=== PATIENT | male | born 1970 | race Caucasian/White ===

== ENCOUNTER 2025-03-16 20:46 | Inpatient (IN) ==
[2025-03-16 21:44] LABS: Hematocrit (blood only) 39.3 % (42.0-52.0); Hemoglobin 13.1 g/dl (14.0-18.0); Immature Granulocytes # (auto) 0.01 K/uL (0.01-0.20); Immature Granulocytes % (auto) 0.2 %; Mean Corpuscular Hemoglobin 30.3 pg (25.0-34.0); Mean Corpuscular Volume 91.0 fL (80.0-100.0); Platelet Count 203 K/uL (130-400); RDW Standard Deviation 46.8 fL (36.4-46.3); Red Blood Count 4.32 M/uL (4.70-6.10); White Blood Count 5.59 K/ul (4.8-10.8)
[2025-03-16 21:45] LABS: Alanine Aminotransferase 25.0 U/L (7-52); Albumin Globulin Ratio 1.2 (0.9-2); Albumin Level 4.0 gm/dl (3.4-5.0); Alkaline Phosphatase 33.0 U/L (34-104); Anion Gap 8.0 (3-11); Bilirubin,Total 0.4 mg/dl (0.2-1.0); Blood Urea Nitrogen 33.0 mg/dl (6-23); Calcium 9.3 mg/dl (8.6-10.3); Carbon Dioxide 26.0 mmol/L (21-32); Chloride 104.0 mmol/L (98-107); Creatine Kinase 123.0 U/L (30-223); Creatinine Clr Calc Pharmacy 53.5 ml/min; Globulin 3.3 gm/dl (2.5-4.0); Glucose 124.0 mg/dl (70-99(Fasting)); Lipase 25.0 U/L (11-82); Magnesium 1.9 mg/dl (1.7-2.4); Potassium 4.2 mmol/L (3.5-5.1); Sodium 138.0 mmol/L (136-145); Total Protein 7.3 gm/dl (6.0-8.3)
[2025-03-16] MEDS: ACETAMINOPHEN 1,000 MG/100 ML VIAL IV STA (21:50)
--- NOTE | 2025-03-16 21:52 | XRay Report ---
Exam(s): XR CXR 1 VIEW EXAM: XR Chest, 1 View CLINICAL HISTORY: Reason for exam: syncope. TECHNIQUE: Frontal view of the chest. COMPARISON: No relevant prior studies available. FINDINGS: Lungs: No consolidation. Pleural space: No significant pleural effusion. No pneumothorax. Heart: No cardiomegaly or pulmonary vascular congestion. Bones/joints: No acute fracture. No dislocation. IMPRESSION: No evidence of acute cardiopulmonary disease. Electronically signed by: Kristi Adams M.D. 03/16/25 21:52 PM
[2025-03-16 21:58] LABS: INR 1.1 (0.9-1.1); Prothrombin Time 11.4 Seconds (9.0-12.0)
[2025-03-16 22:00] LABS: Thyroid Stimulating Hormone 0.359 uIu/ml (0.300-4.500)
[2025-03-16] MEDS: SODIUM CHLORIDE 0.9% 1,000 ML IV ONE (22:27)
--- NOTE | 2025-03-16 23:27 | Emergency Department Note ---
Impression & Plan Syncope and collapse, Fever, Influenza A, Acute hypotension, Elevated serum creatinine ED Provider Note HISTORY OF PRESENT ILLNESS: Patient is a 54-year-old male presenting after syncopal episode. Patient reports he has been having a cough and congestion for the last 48 hours. He reports he is coughing so hard but unable to bring anything up when he coughs. He states he has had subjective fevers and chills at home. Denies any recent sick contact exposures, but does report he was recently traveling to [place]. He denies any DVT or PE history. He is not on any anticoagulation or antiplatelet therapies. He reports that he had a coughing fit and was coughing so hard that he ended up resting against his sink in his kitchen. He reports that he got lightheaded after coughing so hard in the next thing he remembers was laying on the ground and he had passed out. He denies any chest pain prior to the fall. He denies any numbness or tingling or weakness in his extremities. He denies any dysuria or hematuria. ROS: as above PHYSICAL EXAM: Constitutional: Patient appears in no acute distress. HENT: Head: Normocephalic and atraumatic. Eyes: EOMI, PERRL Mouth/Throat: Mucous membranes moist. Neck: Trachea midline. Neck supple. Cardiovascular: RRR, No murmurs, rubs or gallops. Intact distal pulses. Pulmonary/Chest: No respiratory distress. Breath sounds clear and equal bilaterally. No wheezes or rales. Abdominal: Abdomen soft, no tenderness, rebound or guarding. Musculoskeletal: No edema, tenderness or deformity noted. Skin: Warm and dry. No rash, erythema, pallor or cyanosis Psychiatric: Appropriate mood and affect for situation. Neurological: Alert and keenly responsive. CN II-XII grossly intact, moving all extremities equally and fully. MDM: - Vitals signs showed fever and tachycardia - History obtained via patient. History as above. - Chronic conditions affecting care: None - Differential diagnoses include, but are not limited to: Viral syndrome; ACS; electrolyte abnormality; orthostatic hypotension; dehydration; dysrhythmia; pneumonia; PE - Order placed for continuous cardiac monitoring. At this time, monitor showed rate of 75 bpm with normal sinus rhythm, per my interpretation. - External medical records reviewed. - EKG image interpreted by myself showed sinus rhythm. Rate 83 bpm. QT 344. No acute ischemic changes. - Laboratory workup interpreted by myself showed normal WBC; normal PT/INR; stable electrolytes; elevated creatinine (Cr 2.06); normal CK; normal troponin; normal TSH; normal AST/ALT; normal lipase - CXR image reviewed interpreted by myself today for pneumonia, per my interpretation. - Viral respiratory panel positive for influenza A. - Patient given 1g IV tylenol with improvement in his temperature. He was given a total of 2 L normal saline in the emergency department, but did remain persistently hypotensive. Orthostatic vital signs were obtained and the patient remained persistently hypotensive with a blood pressure of 90s over 50s. Hypotension is likely just secondary to dehydration from his acute viral illness. However, will admit to hospital service for further evaluation. - Discussion was had with spring encaser about patient's case and need for admission - Hospitalist, Dr. Bassett, consulted for admission at 01:25 am. - Patient admitted to [facility] service for further evaluation and management. ASSESSMENT AND PLAN: Diagnosis: syncope and collapse; fever; influenza A; acute hypotension; elevated serum creatinine Plan: admit Past Med/Surg History Problem List (Updated 03/17/25 @ 01:26 by Ximena Montoya MD) Elevated serum creatinine (Acute) Acute hypotension (Acute) Influenza A (Acute) Fever (Acute) Syncope and collapse (Acute) Social History (System 10/05/18 @ 14:24 by Sarita Riddle) Smoking Status: Never smoker Tobacco Type: Smokeless Tobacco (Dip or Chew) Preferred Language: Romanian Feels Safe at Home: Yes Results & Data (ED) Vital Signs Vital Signs - 24 hr 03/16/25 21:16 03/16/25 21:16 03/16/25 21:31 Temperature 38.2 C H Temperature Source Oral Pulse Rate - Lying Pulse Rate - Sitting Pulse Rate - Standing Pulse Rate 100 H Pulse Rate [Finger] Pulse Rhythm Regular Pulse Rhythm [Finger] Pulse Strength Normal Pulse Strength [Finger] Respiratory Rate 17 Respiratory Effort / Characteristics Non-Labored Respiratory Depth Normal Respiratory Pattern Regular Blood Pressure - Lying Blood Pressure - Sitting Blood Pressure- Standing Blood Pressure 109/66 Blood Pressure [Right Arm] Blood Pressure Mean 80 Blood Pressure Mean [Right Arm] Blood Pressure Position Sitting Blood Pressure Position [Right Arm] Pulse Oximetry 92 92 92 Oxygen Delivery Method Room Air Room Air Room Air Sepsis Recent Fever Within 48 Hours Yes Sepsis New/Unexplained Change in Mental Status No Sepsis Action Taken by Nursing No Action Required 03/16/25 22:05 03/16/25 23:00 03/16/25 23:46 Temperature 37.4 C Temperature Source Oral Pulse Rate - Lying Pulse Rate - Sitting Pulse Rate - Standing Pulse Rate 84 Pulse Rate [Finger] 75 Pulse Rhythm Pulse Rhythm [Finger] Regular Pulse Strength Pulse Strength [Finger] Normal Respiratory Rate 20 Respiratory Effort / Characteristics Non-Labored Spontaneous Respiratory Depth Normal Respiratory Pattern Regular Blood Pressure - Lying Blood Pressure - Sitting Blood Pressure- Standing Blood Pressure Blood Pressure [Right Arm] 97/59 L Blood Pressure Mean Blood Pressure Mean [Right Arm] 71 Blood Pressure Position Blood Pressure Position [Right Arm] Lying Pulse Oximetry 98 Oxygen Delivery Method Room Air Sepsis Recent Fever Within 48 Hours Sepsis New/Unexplained Change in Mental Status Sepsis Action Taken by Nursing 03/17/25 00:00 Temperature Temperature Source Pulse Rate - Lying 74 Pulse Rate - Sitting 77 Pulse Rate - Standing 86 Pulse Rate Pulse Rate [Finger] Pulse Rhythm Pulse Rhythm [Finger] Pulse Strength Pulse Strength [Finger] Respiratory Rate Respiratory Effort / Characteristics Respiratory Depth Respiratory Pattern Blood Pressure - Lying 97/58 L Blood Pressure - Sitting 99/61 L Blood Pressure- Standing 90/55 L Blood Pressure Blood Pressure [Right Arm] Blood Pressure Mean Blood Pressure Mean [Right Arm] Blood Pressure Position Blood Pressure Position [Right Arm] Pulse Oximetry Oxygen Delivery Method Sepsis Recent Fever Within 48 Hours Sepsis New/Unexplained Change in Mental Status Sepsis Action Taken by Nursing Laboratory Data 03/16/25 21:09 03/16/25 21:09 Lab Results 03/16/25 03/16/25 Range/Units 21:09 23:10 WBC 5.59 (4.8-10.8) K/ul RBC 4.32 L (4.70-6.10) M/uL Hgb 13.1 L (14.0-18.0) g/dl Hct 39.3 L (42.0-52.0) % MCV 91.0 (80.0-100.0) fL MCH 30.3 (25.0-34.0) pg MCHC 33.3 (32.0-36.0) g/dL RDW Std Deviation 46.8 H (36.4-46.3) fL RDW Coeff of Monse 13.9 (11.5-14.5) % Plt Count 203 (130-400) K/uL MPV 9.0 L (9.4-12.4) fL Immature Gran % (Auto) 0.2 % Neut % (Auto) 77.5 % Lymph % (Auto) 11.6 % Banner % (Auto) 9.5 % Eos % (Auto) 0.7 % Baso % (Auto) 0.5 % Neut # (Auto) 4.33 (1.40-6.50) K/uL Lymph # (Auto) 0.65 L (1.20-3.40) K/uL Banner # (Auto) 0.53 (0.11-0.59) K/uL Eos # (Auto) 0.04 (0.00-0.50) K/uL Baso # (Auto) 0.03 (0.00-0.20) K/uL Immature Gran # (Auto) 0.01 (0.01-0.20) K/uL PT 11.4 (9.0-12.0) Seconds INR 1.1 (0.9-1.1) Sodium 138 (136-145) mmol/L Potassium 4.2 (3.5-5.1) mmol/L Chloride 104 (98-107) mmol/L Carbon Dioxide 26 (21-32) mmol/L Anion Gap 8 (3-11) BUN 33 H (6-23) mg/dl Creatinine 2.06 H (0.6-1.4) mg/dl Est Cr Clr Drug Dosing 53.5 ml/min eGFR 37.57 BUN/Creatinine Ratio 16.0 (10-20) Glucose 124 H (70-99(Fasting)) mg/dl Calcium 9.3 (8.6-10.3) mg/dl Magnesium 1.9 (1.7-2.4) mg/dl Total Bilirubin 0.4 (0.2-1.0) mg/dl AST 23 (13-39) U/L ALT 25 (7-52) U/L Alkaline Phosphatase 33 L (34-104) U/L Total Creatine Kinase 123 (30-223) U/L Troponin I High Sens 7.8 (0-20) pg/ml Total Protein 7.3 (6.0-8.3) gm/dl Albumin 4.0 (3.4-5.0) gm/dl Globulin 3.3 (2.5-4.0) gm/dl Albumin/Globulin Ratio 1.2 (0.9-2) Lipase 25 (11-82) U/L TSH 0.359 (0.300-4.500) uIu/ml Adenovirus (PCR) Not Detected (NotDetected) B. pertussis DNA (PCR) Not Detected (NotDetected) B.parapertussis DNA PCR Not Detected (NotDetected) C. pneumoniae DNA (PCR) Not Detected (NotDetected) Coronavirus OC43 (PCR) Not Detected (NotDetected) Coronavirus HKU1 (PCR) Not Detected (NotDetected) Coronavirus 229E (PCR) Not Detected (NotDetected) SARS-CoV-2 (PCR) Not Detected (NotDetected) Coronavirus NL63 (PCR) Not Detected (NotDetected) Human Metapneumovir PCR Not Detected (NotDetected) Influenza A (H3) PCR DETECTED A (NotDetected) Influenza Type B (PCR) Not Detected (NotDetected) M. pneumoniae (PCR) Not Detected (NotDetected) Parainfluenza 1 (PCR) Not Detected (NotDetected) Parainfluenza 2 (PCR) Not Detected (NotDetected) Parainfluenza 3 (PCR) Not Detected (NotDetected) Parainfluenza 4 (PCR) Not Detected (NotDetected) RSV (PCR) Not Detected (NotDetected) Entero/Rhino (PCR) Not Detected (NotDetected) Administered Medications Discontinued Medications Acetaminophen (Ofirmev) 1,000 mg in 100 mls @ 400 mls/hr IV NOW STA Stop: 03/16/25 21:46 Last Infusion: 03/16/25 22:13 Dose: Infused Documented By: Admin: 03/16/25 21:50 Dose: 400 mls/hr Documented By: OTTONIEL Sodium Chloride (Nss) 1,000 mls @ 999 mls/hr IV .Q1H1M ONE Stop: 03/16/25 22:59 Last Infusion: 03/16/25 23:48 Dose: Infused Documented By: Admin: 03/16/25 22:27 Dose: 999 mls/hr Documented By: OTTONIEL Imaging Data Radiologist's Impression: Chest X-Ray 10/16/25 21:16 Exam(s): XR CXR 1 VIEW EXAM: XR Chest, 1 View CLINICAL HISTORY: Reason for exam: syncope. TECHNIQUE: Frontal view of the chest. COMPARISON: No relevant prior studies available. FINDINGS: Lungs: No consolidation. Pleural space: No significant pleural effusion. No pneumothorax. Heart: No cardiomegaly or pulmonary vascular congestion. Bones/joints: No acute fracture. No dislocation. IMPRESSION: No evidence of acute cardiopulmonary disease. Electronically signed by: Kristi Adams M.D. 03/16/25 21:52 PM Discharge Plan Visit Data Chief Complaint: Syncope Stated Complaint: SYNCOPE, ILLNESS ED Provider: Ximena Montoya Discharge Problem: Syncope and collapse, Fever, Influenza A, Acute hypotension, Elevated serum creatinine Condition: Fair Forms Stand Alone Forms: [facility] Referrals Referrals: PCP,NO [Primary Care Provider] -
[2025-03-17 00:25] LABS: Chlamydia pneumoniae PCR Not Detected (NotDetected); Coronavirus 229E PCR Not Detected (NotDetected); Coronavirus CoV-2 (COVID19)PCR Not Detected (NotDetected); Coronavirus HKU1 PCR Not Detected (NotDetected); Coronavirus NL63 PCR Not Detected (NotDetected); Coronavirus OC43PCR Not Detected (NotDetected); Human Metapneumovirus PCR Not Detected (NotDetected); Influenza A (H3) PCR DETECTED (NotDetected); Parainfluenza Virus 1 PCR Not Detected (NotDetected); Parainfluenza Virus 2 PCR Not Detected (NotDetected); Parainfluenza Virus 3 PCR Not Detected (NotDetected); Parainfluenza Virus 4 PCR Not Detected (NotDetected); Respiratory Syncytial VirusPCR Not Detected (NotDetected); Rhinovirus/Enterovirus PCR Not Detected (NotDetected)
--- NOTE | 2025-03-17 02:14 | History & Physical Report ---
Date of Service March 17, 2025 Assessment & Plan (1) Acute hypotension: Plan: Assessment and plan below following discussion of case with ED provider and reviewing patient history/pertinent normal/abnormal diagnostic test results. Hypotension likely secondary to hypovolemia ARF on CKD, polycystic kidney disease on tolvaptan Secondary to influenza illness Syncope likely secondary to orthostasis Cough symptoms contributory chronic anemia (unknown baseline as per patient) Hyperglycemia ro DM Admit to PCU Tamiflu course dose for renal function TTE re: syncope Baseline UA, monitor creatinine response to IVF Hold lisinopril until creatinine back to baseline Renal ultrasound if without improvement in kidney function. Check hemoglobin A1c DVT prophylaxis with heparin subcu Full code Text document was generated using [employer] voice recognition software. It may contain grammatical or spelling errors. Kindly contact undersigned for clarification of any documentation item in question. History of Present Illness Chief Complaint: Fever, chills, syncope Primary Care Provider: Melissa Castaneda PA-C History obtained from patient and records. Medical history significant for hypertension, polycystic kidney disease on tolvaptan, BHAVESH CPAP intolerance, CRI (baseline stage III CKD as per patient), chronic anemia (unknown baseline as per patient), gout. Patient returned to [place] from [place] vacation 4 days ago. Started getting sick around that time. Fever, chills, cough symptoms unable to expectorate. No chest pain, no SOB. Poor appetite. Achy headache from coughing. Denies abdominal pain. Transient syncopal event at home on standing up. No witnessed seizures. Lowest SBP of 90s documented at the ER. Medical History as above Surgical History : Knee surgery, eye surgery, bicep surgery, back surgery Family History : Kidney disease Personal/Social history : Non-smoker, occasional EtOH intake, retired [employer] employee Allergies Allergy/AdvReac Type Severity Reaction Status Date / Time No Known Allergies Allergy Unverified 03/17/25 02:34 Home Medications Medication Instructions Recorded Confirmed Type allopurinol 100 mg tablet 100 mg PO DAILY 03/17/25 03/17/25 History lisinopril 40 mg tablet 40 mg DAILY 03/17/25 03/17/25 History sertraline 100 mg tablet 100 mg DAILY 03/17/25 03/17/25 History tolvaptan (polycys kidney dis) 45 See Rx Instructions .Route .COMPLEX 03/17/25 03/17/25 History mg (AM)/15 mg (PM) tablets (Jynarque) Past Med/Surg History Problem List (Updated 03/17/25 @ 01:26 by Ximena Montoya MD) Elevated serum creatinine (Acute) Acute hypotension (Acute) Influenza A (Acute) Fever (Acute) Syncope and collapse (Acute) Social History (System 10/05/18 @ 14:24 by Sarita Riddle) Smoking Status: Never smoker Tobacco Type: Smokeless Tobacco (Dip or Chew) Second Hand Exposure: No; Do You Dip or Chew Tobacco: Yes; Tobacco Cessation Education Requested by Patient: No Hx Alcohol Use: Yes Alcohol type: beer Hx Substance Use: No Preferred Language: Bahamian Communication Ability: Effective Produce Associate Required: No Beliefs That Will Affect Care: None Current Living Situation: Spouse and Family Other Information That Helps Us Care for You: No Feels Safe at Home: Yes Safety Concerns: Feels Safe At This Time Assistive Devices: Glasses Review of Systems Review of Systems: As per HPI, all other systems reviewed and negative Physical Exam Physical Exam: GENERAL: Comfortable, pleasant, obese, no respiratory distress SKIN: [place] skin, warm HEENT: [place] palpebral conjunctivae, no ptosis, dry buccal mucosa NECK : Supple, no tenderness CHEST : CTA, no tenderness HEART : RRR, no obvious murmurs ABDOMEN: Some distention, nontender EXTREMITIES : No LE swelling/tenderness, palpable pulses, no other conspicuous deformities noted NEUROLOGIC : Coherent, no facial asymmetry, no other gross focality Results & Data Results & Data Vital Signs (Past 12 Hours) Vital Signs Temp Pulse Pulse Resp BP BP Pulse Ox 03/16/25 23:46 37.4 C 03/16/25 23:00 75 20 97/59 L 98 03/16/25 22:05 84 03/16/25 21:31 92 03/16/25 21:16 92 03/16/25 21:16 38.2 C H 100 H 17 109/66 92 O2 Del Method 03/16/25 23:46 03/16/25 23:00 Room Air 03/16/25 22:05 03/16/25 21:31 Room Air 03/16/25 21:16 Room Air 03/16/25 21:16 Room Air Laboratory Results Laboratory Results WBC 5.59 K/ul (4.8-10.8) 03/16/25 21:09 RBC 4.32 M/uL (4.70-6.10) L 03/16/25 21:09 Hgb 13.1 g/dl (14.0-18.0) L 03/16/25 21:09 Hct 39.3 % (42.0-52.0) L 03/16/25 21:09 MCV 91.0 fL (80.0-100.0) 03/16/25 21:09 MCH 30.3 pg (25.0-34.0) 03/16/25 21:09 MCHC 33.3 g/dL (32.0-36.0) 03/16/25 21:09 RDW Std Deviation 46.8 fL (36.4-46.3) H 03/16/25: RDW Coeff of Monse 13.9 % (11.5-14.5) 03/16/25 21:09 Plt Count 203 K/uL (130-400) 03/16/25 21:09 MPV 9.0 fL (9.4-12.4) L 03/16/25 21:09 Immature Gran % (Auto) 0.2 % 03/16/25 21:09 Neut % (Auto) 77.5 % 03/16/25 21:09 Lymph % (Auto) 11.6 % 03/16/25 21:09 Ray % (Auto) 9.5 % 03/16/25 21:09 Eos % (Auto) 0.7 % 03/16/25 21:09 Baso % (Auto) 0.5 % 03/16/25:09 Neut # (Auto) 4.33 K/uL (1.40-6.50) 03/16/25 21:09 Lymph # (Auto) 0.65 K/uL (1.20-3.40) L 03/16/25 21:09 Ray # (Auto) 0.53 K/uL (0.11-0.59) 03/16/25 21:09 Eos # (Auto) 0.04 K/uL (0.00-0.50) 03/16/25 21:09 Baso # (Auto) 0.03 K/uL (0.00-0.20) 03/16/25 21:09 Immature Gran # (Auto) 0.01 K/uL (0.01-0.20) 03/16/25 21:09 PT 11.4 Seconds (9.0-12.0) 03/16/25 21:09 INR 1.1 (0.9-1.1) 03/16/25 21:09 Sodium 138 mmol/L (136-145) 03/16/25 21:09 Potassium 4.2 mmol/L (3.5-5.1) 03/16/25 21:09 Chloride 104 mmol/L (98-107) 03/16/25 21:09 Carbon Dioxide 26 mmol/L (21-32) 03/16/25 21:09 Anion Gap 8 (3-11) 03/16/25 21:09 BUN 33 mg/dl (6-23) H 03/16/25 21:09 Creatinine 2.06 mg/dl (0.6-1.4) H 03/16/25 21:09 Est Cr Clr Drug Dosing 53.5 ml/min 03/16/25 21:09 eGFR 37.57 03/16/25 21:09 BUN/Creatinine Ratio 16.0 (10-20) 03/16/25 21:09 Glucose 124 mg/dl (70-99(Fasting)) H 03/16/25 21:09 Calcium 9.3 mg/dl (8.6-10.3) 03/16/25 21:09 Magnesium 1.9 mg/dl (1.7-2.4) 03/16/25 21:09 Total Bilirubin 0.4 mg/dl (0.2-1.0) 03/16/25 21:09 AST 23 U/L (13-39) 03/16/25 21:09 ALT 25 U/L (7-52) 03/16/25 21:09 Alkaline Phosphatase 33 U/L (34-104) L 03/16/25 21:09 Total Creatine Kinase 123 U/L (30-223) 03/16/25 21:09 Troponin I High Sens 7.8 pg/ml (0-20) 03/16/25 21:09 Total Protein 7.3 gm/dl (6.0-8.3) 03/16/25 21:09 Albumin 4.0 gm/dl (3.4-5.0) 03/16/25 21:09 Globulin 3.3 gm/dl (2.5-4.0) 03/16/25 21:09 Albumin/Globulin Ratio 1.2 (0.9-2) 03/16/25 21:09 Lipase 25 U/L (11-82) 03/16/25 21:09 TSH 0.359 uIu/ml (0.300-4.500) 03/16/25 21:09 Adenovirus (PCR) Not Detected (NotDetected) 03/16/25 23:10 B. pertussis DNA (PCR) Not Detected (NotDetected) 03/16/25 23:10 B.parapertussis DNA PCR Not Detected (NotDetected) 03/16/25 23:10 C. pneumoniae DNA (PCR) Not Detected (NotDetected) 03/16/25 23:10 Coronavirus OC43 (PCR) Not Detected (NotDetected) 03/16/25 23:10 Coronavirus HKU1 (PCR) Not Detected (NotDetected) 03/16/25 23:10 Coronavirus 229E (PCR) Not Detected (NotDetected) 03/16/25 23:10 SARS-CoV-2 (PCR) Not Detected (NotDetected) 03/16/25 23:10 Coronavirus NL63 (PCR) Not Detected (NotDetected) 03/16/25 23:10 Human Metapneumovir PCR Not Detected (NotDetected) 03/16/25 23:10 Influenza A (H3) PCR DETECTED (NotDetected) A 03/16/25 23:10 Influenza Type B (PCR) Not Detected (NotDetected) 03/16/25 23:10 M. pneumoniae (PCR) Not Detected (NotDetected) 03/16/25 23:10 Parainfluenza 1 (PCR) Not Detected (NotDetected) 03/16/25 23:10 Parainfluenza 2 (PCR) Not Detected (NotDetected) 03/16/25 23:10 Parainfluenza 3 (PCR) Not Detected (NotDetected) 03/16/25 23:10 Parainfluenza 4 (PCR) Not Detected (NotDetected) 03/16/25 23:10 RSV (PCR) Not Detected (NotDetected) 03/16/25 23:10 Entero/Rhino (PCR) Not Detected (NotDetected) 03/16/25 23:10 Impressions Chest X-Ray 03/16/25 21:16 Exam(s): XR CXR 1 VIEW EXAM: XR Chest, 1 View CLINICAL HISTORY: Reason for exam: syncope. TECHNIQUE: Frontal view of the chest. COMPARISON: No relevant prior studies available. FINDINGS: Lungs: No consolidation. Pleural space: No significant pleural effusion. No pneumothorax. Heart: No cardiomegaly or pulmonary vascular congestion. Bones/joints: No acute fracture. No dislocation. IMPRESSION: No evidence of acute cardiopulmonary disease. Electronically signed by: Kristi Adams M.D. 03/16/25 21:52 PM Diagnostic Findings EKG as per my interpretation :Rate 85, NSR, normal axis, LVH, no ischemia
[2025-03-17] MEDS ORDERED: PROMETHAZINE 6.25 MG/50.25 ML BAG IV PRN (02:19)
[2025-03-17] MEDS: OSELTAMIVIR PHOSPHATE 75 MG CAP PO STA (02:48)
[2025-03-17] MEDS: guaiFENesin 600 MG TABCR PO STA (02:48)
[2025-03-17] MEDS: SODIUM CHLORIDE 0.9% 1,000 ML IV ONE (03:08)
[2025-03-17 04:30] LABS: Hematocrit (blood only) 38.7 % (42.0-52.0); Hemoglobin 12.3 g/dl (14.0-18.0); Immature Granulocytes # (auto) 0.01 K/uL (0.01-0.20); Immature Granulocytes % (auto) 0.2 %; Mean Corpuscular Hemoglobin 29.1 pg (25.0-34.0); Mean Corpuscular Volume 91.5 fL (80.0-100.0); Platelet Count 193 K/uL (130-400); RDW Standard Deviation 47.6 fL (36.4-46.3); Red Blood Count 4.23 M/uL (4.70-6.10); White Blood Count 4.21 K/ul (4.8-10.8)
[2025-03-17 04:46] LABS: Anion Gap 7.0 (3-11); Blood Urea Nitrogen 37.0 mg/dl (6-23); Calcium 9.0 mg/dl (8.6-10.3); Carbon Dioxide 25.0 mmol/L (21-32); Chloride 105.0 mmol/L (98-107); Creatinine Clr Calc Pharmacy 49.2 ml/min; Glucose 111.0 mg/dl (70-99(Fasting)); Potassium 3.8 mmol/L (3.5-5.1); Sodium 137.0 mmol/L (136-145)
[2025-03-17] MEDS: SODIUM CHLORIDE 0.9% 1,000 ML IV STA (04:47)
[2025-03-17] MEDS: HEPARIN SOD 5,000 UNIT/0.5 ML VIAL SQ SCH (05:16)
[2025-03-17 07:00] LABS: Hemoglobin A1C 6.4 % (4.5-5.6)
[2025-03-17] MEDS ORDERED: ONDANSETRON INJ 2 MG/ML 2 ML VIAL IV PRN (07:39)
[2025-03-17] MEDS: guaiFENesin 600 MG TABCR PO SCH (08:11)
[2025-03-17] MEDS: SERTRALINE HCL 100 MG TABLET PO SCH (08:11)
--- NOTE | 2025-03-17 09:11 | Ultrasound Report ---
RENAL ULTRASOUND CLINICAL HISTORY: Acute renal failure. Chronic kidney disease. COMPARISON STUDY: None. TECHNIQUE: Sonography of the kidneys and the urinary bladder was performed. FINDINGS: Numerous cysts throughout the kidneys are noted. The largest right-sided cyst measures 6.6 cm. The largest left-sided cyst measures 8.8 cm. This exam is mildly compromised by suboptimal penetr ation but no hydronephrosis is noted. Mild to bilateral renal cortical thinning is present. The right kidney measures approximately 10.7 x 6.3 x 6.1 cm and the left kidney measures 14.3 x 7.9 x 6.1 cm. Both ureteral jets were identified. Bladder is unremarkable by sonography. IMPRESSION: 1. No hydronephrosis. Exam mildly compromised by suboptimal penetration. 2. Numerous renal cysts suggestive of polycystic kidney disease. 3. Mild to moderate bilateral renal cortical thinning. ACT 112: Negative or not required by law. Electronically signed by: Silas García M.D. 03/17/2025 9:09 AM
[2025-03-17] MEDS: SODIUM CHLORIDE 0.9% 1,000 ML IV SCH (12:35)
--- NOTE | 2025-03-17 12:59 | Hospitalist Progress Note ---
Date of Service March 17, 2025 Assessment & Plan (1) Acute hypotension: Plan: Influenza A infection --CXR:No evidence of acute cardiopulmonary disease. -- Respiratory BioFire positive for influenza A -- Blood cultures pending Continue Tamiflu saturating low 90s on room Hypotension/dehydration Acute kidney injury on CKD II Polycystic kidney disease --Renal USD:No hydronephrosis. Exam mildly compromised by suboptimal p enetration. Numerous renal cysts suggestive of polycystic kidney disease. Mild to moderate bilateral renal cortical thinning. --Baseline creatinine around 1.6 hold lisinopril --Urinalysis pending Avoid nephrotoxic agents as able Continue IV fluids Follows with nephrology as outpatient Continue tolvaptan Syncope likely secondary to orthostasis/vasovagal due to intractable cough Monitor on monitor to rule out any arrhythmias Echo pending No focal deficits on exam Anemia of chronic disease No acute bleeding issues Monitor Prediabetes HbA1c 6.4 [employer] lifestyle changes DVT Px: Heparin SQ Code Status Full code Admission and Anticipated Discharge Date Admission Date: March 17, 2025 Subjective Patient is seen and examined at bedside Less cough, dyspnea today Still hypotensive this morning Also states having some abdominal pain which she attributes due to significant cough Denies any chest pain, nausea, vomiting Saturating low 90s on room air Review of Systems Review of Systems: All systems reviewed & are unremarkable except as noted in Subjective Physical Exam Physical Exam: Physical Exam: Vitals signs as noted above General Appearance:Moderately built and nourished, no apparent distress Head: normocephalic, Atraumatic Eyes: normal inspection, EOMI Neck: supple, Trachea midline Respiratory/Chest: Decreased breath sounds, CTA, No accessory muscle use Cardiovascular: S1, S2, No murmur Abdomen/GI:Soft, Non tender, Bowel sounds present Extremities/Musculoskeletal:normal inspection, no edema Neurologic/Psych:AAOX3, grossly no focal neurological deficits Skin: normal color, warm Results & Data Results & Data Vital Signs (Past 12 Hours) Vital Signs Temp Pulse Pulse Resp BP BP Pulse Ox 03/17/25 10:56 37.2 C 67 19 94/60 L 92 03/17/25 08:17 37.3 C 70 104/70 94 03/17/25 07:13 67 03/17/25 05:11 64 03/17/25 04:17 37.2 C 64 15 91/54 L 95 03/17/25 04:17 03/17/25 04:01 03/17/25 02:00 72 15 107/66 92 03/17/25 01:57 72 03/17/25 01:06 75 28 H 90/63 L 91 Pulse Ox O2 Del Method O2 Del Method 03/17/25 10:56 Room Air 03/17/25 08:17 Room Air 03/17/25 07:13 03/17/25 05:11 03/17/25 04:17 Room Air 03/17/25 04:17 95 Room Air 03/17/25 04:01 Room Air 03/17/25 02:00 03/17/25 01:57 03/17/25 01:06 Laboratory Results Short CBC 03/16/25 03/17/25 Range/Units 21:09 04:02 WBC 5.59 4.21 L (4.8-10.8) K/ul Hgb 13.1 L 12.3 L (14.0-18.0) g/dl Hct 39.3 L 38.7 L (42.0-52.0) % Plt Count 203 193 (130-400) K/uL [facility] 03/16/25 03/17/25 21:09 04:02 Sodium 138 137 Potassium 4.2 3.8 Chloride 104 105 Carbon Dioxide 26 25 BUN 33 H 37 H Creatinine 2.06 H 2.24 H Glucose 124 H 111 H Calcium 9.3 9.0 Cardiac Enzymes 03/16/25 Range/Units 21:09 Total Creatine Kinase 123 (30-223) U/L Liver Function 03/16/25 Range/Units 21:09 Total Bilirubin 0.4 (0.2-1.0) mg/dl AST 23 (13-39) U/L ALT 25 (7-52) U/L Alkaline Phosphatase 33 L (34-104) U/L Albumin 4.0 (3.4-5.0) gm/dl
[2025-03-17 19:04] LABS: Appearance Urine Clear (Clear); Glucose Urine UA Negative (Negative)
[2025-03-17 19:30] VITALS: RESP 18
[2025-03-17] MEDS: TOLVAPTAN 15 MG TABLET PO ONE (20:32)
[2025-03-17] MEDS: ACETAMINOPHEN 325 MG TAB PO PRN (20:35)
[2025-03-18 06:46] LABS: Hematocrit (blood only) 36.1 % (42.0-52.0); Hemoglobin 11.7 g/dl (14.0-18.0); Immature Granulocytes # (auto) 0.01 K/uL (0.01-0.20); Immature Granulocytes % (auto) 0.3 %; Mean Corpuscular Hemoglobin 30.0 pg (25.0-34.0); Mean Corpuscular Volume 92.6 fL (80.0-100.0); Platelet Count 190 K/uL (130-400); RDW Standard Deviation 47.6 fL (36.4-46.3); Red Blood Count 3.90 M/uL (4.70-6.10); White Blood Count 3.68 K/ul (4.8-10.8)
[2025-03-18 07:11] LABS: Anion Gap 6.0 (3-11); Blood Urea Nitrogen 31.0 mg/dl (6-23); Calcium 8.4 mg/dl (8.6-10.3); Carbon Dioxide 24.0 mmol/L (21-32); Chloride 110.0 mmol/L (98-107); Creatinine Clr Calc Pharmacy 70.2 ml/min; Glucose 92.0 mg/dl (70-99(Fasting)); Magnesium 1.8 mg/dl (1.7-2.4); Potassium 4.5 mmol/L (3.5-5.1); Sodium 140.0 mmol/L (136-145)
[2025-03-18 07:25] VITALS: O2SAT 94
[2025-03-18] MEDS: TOLVAPTAN 15 MG TABLET PO SCH ×2 (08:26→16:59)
[2025-03-18] MEDS: OSELTAMIVIR PHOSPHATE 30 MG CAP PO SCH (09:19)
[2025-03-18 11:42] VITALS: BP 104/69; PULSE 62; TEMP 97.6
--- NOTE | 2025-03-18 12:09 | Hospitalist Progress Note ---
Date of Service March 18, 2025 Assessment & Plan (1) Acute hypotension: Plan: Influenza A infection --CXR:No evidence of acute cardiopulmonary disease. -- Respiratory BioFire positive for influenza A -- Blood cultures: Negative to date Continue Tamiflu Saturating well on room air Plan to discharge home today Hypotension/dehydration Acute kidney injury on CKD II Polycystic kidney disease --Renal USD:No hydronephrosis. Exam mildly compromised by suboptimal penetration. Numerous renal cysts suggestive of polycystic kidney disease. Mild to moderate bilateral renal cortical thinning. --Baseline creatinine around 1.6 hold lisinopril --Urinalysis within normal limits --Received IV fluid Cr:2.24>1.57 Avoid nephrotoxic agents as able Follows with nephrology as outpatient Continue tolvaptan Syncope likely secondary to orthostasis/vasovagal due to intractable cough Monitor on monitor to rule out any arrhythmias Echo: EF 60 to 65%. Mild concentric LVH. Aortic valve is bicuspid. Mild aortic regurgitation. Attic stenosis is absent. Aortic root mildly enlarged, 4.2 cm. Ascending aorta was not well-visualized. Multiple hepatic cysts visualized. 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 DVT Px: Heparin SQ Code Status Full code Disposition Home Admission and Anticipated Discharge Date Admission Date: March 17, 2025 Subjective Patient is seen and examined at bedside States feeling better today Saturating well on room air Cough, dyspnea slightly improved Renal function seems to be back to baseline Patient offers no other complaints today Review of Systems Review of Systems: All systems reviewed & are unremarkable except as noted in Subjective Physical Exam Physical Exam: Physical Exam: Vitals signs as noted above General Appearance:Moderately built and nourished, no apparent distress Head: normocephalic, Atraumatic Eyes: normal inspection, EOMI Neck: supple, Trachea midline Respiratory/Chest: Decreased breath sounds, CTA, No accessory muscle use Cardiovascular: S1, S2, No murmur Abdomen/GI:Soft, Non tender, Bowel sounds present Extremities/Musculoskeletal:normal inspection, no edema Neurologic/Psych:AAOX3, grossly no focal neurological deficits Skin: normal color, warm Results & Data Results & Data Vital Signs (Past 12 Hours) Vital Signs Temp Pulse Pulse Resp BP Pulse Ox O2 Del Method 03/18/25 11:41 36.4 C 62 18 104/69 94 Room Air 03/18/25 09:57 Room Air 03/18/25 07:25 37.0 C 72 18 117/74 94 Room Air 03/18/25 07:07 64 Laboratory Results Short CBC 03/18/25 Range/Units 06:19 WBC 3.68 L (4.8-10.8) K/ul Hgb 11.7 L (14.0-18.0) g/dl Hct 36.1 L (42.0-52.0) % Plt Count 190 (130-400) K/uL BMP 03/18/25 06:19 Sodium 140 Potassium 4.5 Chloride 110 H Carbon Dioxide 24 BUN 31 H Creatinine 1.57 H D Glucose 92 Calcium 8.4 L Urine 03/17/25 Range/Units 18:45 Urine Color Yellow Urine Appearance Clear (Clear) Urine pH 5.5 (4.5-7.5) Ur Specific [place] 1.015 (1.000-1.030) Urine Protein Negative (Negative) Urine Glucose (UA) Negative (Negative)
--- NOTE | 2025-03-18 14:50 | Discharge Summary ---
Date of Service March 18, 2025 Admission HPI Per Admitting Provider History obtained from patient and records. Medical history significant for hypertension, polycystic kidney disease on tolvaptan, BHAVESH CPAP intolerance, CRI (baseline stage III CKD as per patient), chronic anemia (unknown baseline as per patient), gout. Patient returned to [place] from [place] vacation 4 days ago. Started getting sick around that time. Fever, chills, cough symptoms unable to expectorate. No chest pain, no SOB. Poor appetite. Achy headache from coughing. Denies abdominal pain. Transient syncopal event at home on standing up. No witnessed seizures. Lowest SBP of 90s documented at the ER. Medical History as above Surgical History : Knee surgery, eye surgery, bicep surgery, back surgery Family History : Kidney disease Personal/Social history : Non-smoker, occasional EtOH intake, retired [employer] employee Admission Exam Per Admitting Provider GENERAL: Comfortable, pleasant, obese, no respiratory distress SKIN: muniz skin, warm HEENT: [place] palpebral conjunctivae, no ptosis, dry buccal mucosa NECK : Supple, no tenderness CHEST : CTA, no tenderness HEART : RRR, no obvious murmurs ABDOMEN: Some distention, nontender EXTREMITIES : No LE swelling/tenderness, palpable pulses, no other conspicuous deformities noted NEUROLOGIC : Coherent, no facial asymmetry, no other gross focality Principal Diagnosis Influenza A infection Acute kidney injury on CKD stage II Hypotension Syncope Discharge Data Allergies Allergy/AdvReac Type Severity Reaction Status Date / Time No Known Allergies Allergy Unverified 03/17/25 02:34 Consultations 03/17/25 01:24 ED Decision to Admit Stat Procedures Performed Laboratory Results WBC 3.68 K/ul (4.8-10.8) L 03/18/25 06:19 RBC 3.90 M/uL (4.70-6.10) L 03/18/25 06:19 Hgb 11.7 g/dl (14.0-18.0) L 03/18/25 06:19 Hct 36.1 % (42.0-52.0) L 03/18/25 06:19 MCV 92.6 fL (80.0-100.0) 03/18/25 06:19 MCH 30.0 pg (25.0-34.0) 03/18/25 06:19 MCHC 32.4 g/dL (32.0-36.0) 03/18/25 06:19 RDW Std Deviation 47.6 fL (36.4-46.3) H 03/18/25 06:19 RDW Coeff of Monse 13.9 % (11.5-14.5) 03/18/25 06:19 Plt Count 190 K/uL (130-400) 03/18/25 06:19 MPV 9.2 fL (9.4-12.4) L 03/18/25 06:19 Immature Gran % (Auto) 0.3 % 03/18/25 06:19 Neut % (Auto) 49.6 % 03/18/25 06:19 Lymph % (Auto) 39.9 % 03/18/25 06:19 Burke % (Auto) 7.3 % 03/18/25 06:19 Eos % (Auto) 2.4 % 03/18/25 06:19 Baso % (Auto) 0.5 % 03/18/25 06:19 Neut # (Auto) 1.82 K/uL (1.40-6.50) 03/18/25 06:19 Lymph # (Auto) 1.47 K/uL (1.20-3.40) 03/18/25 06:19 Burke # (Auto) 0.27 K/uL (0.11-0.59) 03/18/25 06:19 Eos # (Auto) 0.09 K/uL (0.00-0.50) 03/18/25 06:19 Baso # (Auto) 0.02 K/uL (0.00-0.20) 03/18/25 06:19 Immature Gran # (Auto) 0.01 K/uL (0.01-0.20) 03/18/25 06:19 PT 11.4 Seconds (9.0-12.0) 03/16/25 21:09 INR 1.1 (0.9-1.1) 03/16/25 21:09 Sodium 140 mmol/L (136-145) 03/18/25 06:19 Potassium 4.5 mmol/L (3.5-5.1) 03/18/25 06:19 Chloride 110 mmol/L (98-107) H 03/18/25 06:19 Carbon Dioxide 24 mmol/L (21-32) 03/18/25 06:19 Anion Gap 6 (3-11) 03/18/25 06:19 BUN 31 mg/dl (6-23) H 03/18/25 06:19 Creatinine 1.57 mg/dl (0.6-1.4) H D 03/18/25 06:19 Est Cr Clr Drug Dosing 70.2 ml/min 03/18/25 06:19 eGFR 52.05 03/18/25 06:19 BUN/Creatinine Ratio 19.7 (10-20) 03/18/25 06:19 Glucose 92 mg/dl (70-99(Fasting)) 03/18/25 06:19 Estimat Average Glucose 137 mg/dl 03/17/25 04:02 Hemoglobin A1c 6.4 % (4.5-5.6) H 03/17/25 04:02 Lactate 0.8 mmol/L (0.4-2.0) 03/17/25 04:02 Calcium 8.4 mg/dl (8.6-10.3) L 03/18/25 06:19 Magnesium 1.8 mg/dl (1.7-2.4) 03/18/25 06:19 Total Bilirubin 0.4 mg/dl (0.2-1.0) 03/16/25 21:09 AST 23 U/L (13-39) 03/16/25 21:09 ALT 25 U/L (7-52) 03/16/25 21:09 Alkaline Phosphatase 33 U/L (34-104) L 03/16/25 21:09 Total Creatine Kinase 123 U/L (30-223) 03/16/25 21:09 Troponin I High Sens 7.8 pg/ml (0-20) 03/16/25 21:09 Total Protein 7.3 gm/dl (6.0-8.3) 03/16/25 21:09 Albumin 4.0 gm/dl (3.4-5.0) 03/16/25 21:09 Globulin 3.3 gm/dl (2.5-4.0) 03/16/25 21:09 Albumin/Globulin Ratio 1.2 (0.9-2) 03/16/25 21:09 Lipase 25 U/L (11-82) 03/16/25 21:09 Procalcitonin 0.37 ng/ml (0-0.5) 03/17/25 04:02 TSH 0.359 uIu/ml (0.300-4.500) 03/16/25 21:09 Urine Color Yellow 03/17/25 18:45 Urine Appearance Clear (Clear) 03/17/25 18:45 Urine pH 5.5 (4.5-7.5) 03/17/25 18:45 Ur Specific [place] 1.015 (1.000-1.030) 03/17/25 18:45 Urine Protein Negative (Negative) 03/17/25 18:45 Urine Glucose (UA) Negative (Negative) 03/17/25 18:45 Urine Ketones Negative (Negative) 03/17/25 18:45 Urine Blood Negative (Negative) 03/17/25 18:45 Urine Nitrite Negative (Negative) 03/17/25 18:45 Urine Bilirubin Negative (Negative) 03/17/25 18:45 Urine Urobilinogen Negative (Negative) 03/17/25 18:45 Ur Leukocyte Esterase Negative (Negative) 03/17/25 18:45 Urine Comment 03/17/25 18:45 Adenovirus (PCR) Not Detected (NotDetected) 03/16/25 23:10 B. pertussis DNA (PCR) Not Detected (NotDetected) 03/16/25 23:10 B.parapertussis DNA PCR Not Detected (NotDetected) 03/16/25 23:10 C. pneumoniae DNA (PCR) Not Detected (NotDetected) 03/16/25 23:10 Coronavirus OC43 (PCR) Not Detected (NotDetected) 03/16/25 23:10 Coronavirus HKU1 (PCR) Not Detected (NotDetected) 03/16/25 23:10 Coronavirus 229E (PCR) Not Detected (NotDetected) 03/16/25 23:10 SARS-CoV-2 (PCR) Not Detected (NotDetected) 03/16/25 23:10 Coronavirus NL63 (PCR) Not Detected (NotDetected) 03/16/25 23:10 Human Metapneumovir PCR Not Detected (NotDetected) 03/16/25 23:10 Influenza A (H3) PCR DETECTED (NotDetected) A 03/16/25 23:10 Influenza Type B (PCR) Not Detected (NotDetected) 03/16/25 23:10 M. pneumoniae (PCR) Not Detected (NotDetected) 03/16/25 23:10 Parainfluenza 1 (PCR) Not Detected (NotDetected) 03/16/25 23:10 Parainfluenza 2 (PCR) Not Detected (NotDetected) 03/16/25 23:10 Parainfluenza 3 (PCR) Not Detected (NotDetected) 03/16/25 23:10 Parainfluenza 4 (PCR) Not Detected (NotDetected) 03/16/25 23:10 RSV (PCR) Not Detected (NotDetected) 03/16/25 23:10 Entero/Rhino (PCR) Not Detected (NotDetected) 03/16/25 23:10 Impressions Chest X-Ray 03/16/25 21:16 Exam(s): XR CXR 1 VIEW EXAM: XR Chest, 1 View CLINICAL HISTORY: Reason for exam: syncope. TECHNIQUE: Frontal view of the chest. COMPARISON: No relevant prior studies available. FINDINGS: Lungs: No consolidation. Pleural space: No significant pleural effusion. No pneumothorax. Heart: No cardiomegaly or pulmonary vascular congestion. Bones/joints: No acute fracture. No dislocation. IMPRESSION: No evidence of acute cardiopulmonary disease. Electronically signed by: Kristi Adams M.D. 03/16/25 21:52 PM Renal Ultrasound 03/17/25 05:12 RENAL ULTRASOUND CLINICAL HISTORY: Acute renal failure. Chronic kidney disease. COMPARISON STUDY: None. TECHNIQUE: Sonography of the kidneys and the urinary bladder was performed. FINDINGS: Numerous cysts throughout the kidneys are noted. The largest right- sided cyst measures 6.6 cm. The largest left-sided cyst measures 8.8 cm. This exam is mildly compromised by suboptimal penetration but no hydronephrosis is noted. Mild to bilateral renal cortical thinning is present. The right kidney measures approximately 10.7 x 6.3 x 6.1 cm and the left kidney measures 14.3 x 7.9 x 6.1 cm. Both ureteral jets were identified. Bladder is unremarkable by sonography. IMPRESSION: 1. No hydronephrosis. Exam mildly compromised by suboptimal penetration. 2. Numerous renal cysts suggestive of polycystic kidney disease. 3. Mild to moderate bilateral renal cortical thinning. ACT 112: Negative or not required by law. Electronically signed by: Silas García M.D. 03/17/2025 9:09 AM Ordered Studies 03/17/25 05:12 US renal/blad retro comp Stat Hospital Course (1) Acute hypotension: Influenza A infection --CXR:No evidence of acute cardiopulmonary disease. -- Respiratory BioFire positive for influenza A -- Blood cultures: Negative to date Continue Tamiflu Saturating well on room air Plan to discharge home today Hypotension/dehydration Acute kidney injury on CKD II Polycystic kidney disease --Renal USD:No hydronephrosis. Exam mildly compromised by suboptimal penetration. Numerous renal cysts suggestive of polycystic kidney disease. Mild to moderate bilateral renal cortical thinning. --Baseline creatinine around 1.6 hold lisinopril --Urinalysis within normal limits --Received IV fluid Cr:2.24>1.57 Avoid nephrotoxic agents as able Follows with nephrology as outpatient Continue tolvaptan Syncope likely secondary to orthostasis/vasovagal due to intractable cough Monitor on monitor to rule out any arrhythmias Echo: EF 60 to 65%. Mild concentric LVH. Aortic valve is bicuspid. Mild aortic regurgitation. Attic stenosis is absent. Aortic root mildly enlarged, 4.2 cm. Ascending aorta was not well-visualized. Multiple hepatic cysts visualized. 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 DVT Px: Heparin SQ Code Status Full code Disposition Home Total Time Total Time Spent Total Time Spent (In Minutes): 52 minutes Discharge Plan Discharge Items Patient Disposition: Home - Self-Care Reason For Visit: HYPOTENSION, FLU Discharge Diagnosis: Influenza A infection Acute kidney injury on CKD stage II Hypotension Syncope Condition on Discharge: Fair Activity: Per Instructions section Exercise/Sports: Gradually increase as tolerated Non-emergency contact: Primary Care Provider Call non-emergency contact if: you have any medication questions, your symptoms worsen, your pain is concerning for you and you have a fever Follow-up/Referrals: PCPMAMADOU [Primary Care Provider] - Diet: Heart Healthy Addtl Attending Provider Instructions: -- Follow-up with your primary care physician in 1 week --Complete the Tamiflu course as prescribed. --Increase oral fluid intake to keep hydrated -- You are incidentally found to have cysts on your liver on ultrasound. Follow-up with your physician for further recommendations. Seek immediate medical attention if your symptoms reoccur or worsen Please review medication list provided on discharge for any medication changes as instructed. Please call if you have any questions or problems. You can reach a [facility] hospitalist on duty at [facility] 24 hours a day by calling [phone] Pending Studies at Discharge: Yes Studies:: Blood cultures Stand-Alone Forms: [facility], Smoking Cessation Medications and DC Order Prescriptions: New guaifenesin [Mucinex] 600 mg Tablet Extended Release 12hr 600 mg PO Q12 Qty: 10 0RF oseltamivir [Tamiflu] 30 mg capsule 30 mg PO BID 4 Days Qty: 8 0RF dextromethorphan-guaifenesin [Chld Robitussin Cough-Chest DM] 5-100 mg/5 mL liquid 10 ml PO Q8H PRN (Reason: cough) Qty: 500 0RF Continued sertraline 100 mg tablet 100 mg DAILY allopurinol 100 mg tablet 100 mg PO DAILY tolvaptan (polycys kidney dis) [Jynarque] 45 mg (AM)/ 15 mg (PM) tablets, sequential See Rx Instructions .ROUTE .COMPLEX Rx Instructions: 45 mg Am 15 mg PM Held lisinopril 40 mg tablet 40 mg DAILY Hold Instructions: Hold taking your lisinopril as your blood pressure is low. Follow-up with your primary care physician for further recommendations on follow-up. Discharge Orders: Discharge Order (Routine); Ordered 03/18/25 Ordered By: Ruddy Epperson/Other Patient Handouts: Prediabetes, 5 Steps for Eating Healthier Admission Data Admit Date/Time: 03/17/25 02:18 Attending Provider: Ruddy Naidu Admit Provider: Koffi Bassett Primary Care Provider: PCP,NO Other Providers: Koffi Bassett Other Interventions: Discharge Summary Assessment (RN) Last Done: 03/18/25 12:21
[2025-03-18] MEDS ORDERED: OSELTAMIVIR PHOSPHATE 30 MG CAP PO SCH (21:00)
--- NOTE | 2025-03-19 23:44 | Electrocardiogram Report ---
Test Reason : Blood Pressure : */* mmHG Vent. Rate : 83 BPM Atrial Rate : 83 BPM P-R Int : 132 ms QRS Dur : 86 ms QT Int : 344 ms P-R-T Axes : 45 0 27 degrees QTcB Int : 404 ms Normal sinus rhythm Possible Left atrial enlargement Minimal voltage criteria for LVH, may be normal variant ( R in aVL ) Borderline ECG No previous ECGs available Confirmed by Jian German ([id number]) on 03/19/2025 11:43:47 PM Referred By: REFERRED SELF Confirmed By: Jian German
== END 2025-03-18 17:55 | disposition home or self-care (01) | DRG 194 ==
LOC: ED 20:46 → 2E 03-17 02:18 → 2N 03-17 19:12